=== PATIENT | male | born 1955 | race Caucasian/White ===

== ENCOUNTER → 2022-03-27 09:43 | Outpatient (BNVA) | payer OTHER, SELFPAY | PROVIDERS: Family Provider Internal Medicine; PCP Internal Medicine; Visit Provider Podiatrist Foot & Ankle Surgery | DX: G57.62 Lesion of plantar nerve, left lower limb (principal); E11.9 Type 2 diabetes mellitus without complications; Z79.4 Long term (current) use of insulin; Z79.84 Long term (current) use of oral hypoglycemic drugs | CPT/HCPCS: 64455; 73630; 99204 ==

== ENCOUNTER → 2022-04-30 10:59 | Outpatient (BNVA) | payer OTHER, SELFPAY | PROVIDERS: Family Provider Internal Medicine; PCP Internal Medicine; Visit Provider Podiatrist Foot & Ankle Surgery | DX: G57.62 Lesion of plantar nerve, left lower limb (principal); E11.9 Type 2 diabetes mellitus without complications; Z79.84 Long term (current) use of oral hypoglycemic drugs; Z79.4 Long term (current) use of insulin | CPT/HCPCS: 99213 ==

== ENCOUNTER → 2022-06-29 10:37 | Outpatient (BNVA) | payer OTHER, SELFPAY | PROVIDERS: Family Provider Internal Medicine; PCP Internal Medicine; Referring Provider Nurse Practitioner; Visit Provider Student in an Organized Health Care Education/Training Program | DX: G56.31 Lesion of radial nerve, right upper limb (principal); M65.4 Radial styloid tenosynovitis [de Quervain] | CPT/HCPCS: 20600; 99204 ==

== ENCOUNTER → 2023-03-14 11:28 | Outpatient (BNVA) | payer OTHER, SELFPAY | PROVIDERS: Family Provider Internal Medicine; PCP Internal Medicine; Visit Provider Podiatrist Foot & Ankle Surgery | DX: G57.62 Lesion of plantar nerve, left lower limb; E11.42 Type 2 diabetes mellitus with diabetic polyneuropathy; Z79.84 Long term (current) use of oral hypoglycemic drugs; Z79.4 Long term (current) use of insulin | CPT/HCPCS: 73630; 99213 ==

== ENCOUNTER → 2023-03-28 10:04 | Outpatient (BNVA) | payer OTHER, SELFPAY | PROVIDERS: Family Provider Internal Medicine; PCP Internal Medicine; Referring Provider Nurse Practitioner; Visit Provider Internal Medicine Cardiovascular Disease | DX: I49.9 Cardiac arrhythmia, unspecified (principal); I49.1 Atrial premature depolarization; I49.3 Ventricular premature depolarization | CPT/HCPCS: 93242 ==

== ENCOUNTER 2024-03-18 10:05 | Outpatient (CLI) | payer OTHER, SELFPAY ==
--- NOTE | 2024-03-18 10:08 | USCV_ITS ---
Yoni Grigsby (Jacoby) Age: 68 Gender: M : 1955 Exam Date: 03/18/2024 10:23 Ordering Phys: Shayy Cho Technologist: CHARLEEN Exam Location: [facility] [place] Indication: screening HISTORY: Diameter (cm) AP x Transverse x Length Velocity (cm/s) Waveform Prox Aorta: 2.20 x 2.20 x 78.80 Triphasic Mid Aorta: 2.00 x 1.80 x 74.90 Triphasic Distal Aorta: 2.00 x 1.80 x 61.60 Triphasic Right Iliac Prox: 0.79 x 1.15 x 72.80 Triphasic Left Iliac Prox: 0.99 x 1.16 x 96.40 Triphasic Stent Prox Landing x x Aneurysmal Sac Max x x Lt Lat Sac Dim Rt Lat Sac Dim Stent Dist Landing x x Right Iliac Stent x x Left Iliac Stent x x Right Renal Art Left Renal Art FINDINGS: Comparison: none available. No evidence of abdominal aortic or bilateral iliac aneurysm. Ectatic abdominal aorta with evidence of atherosclerotic plaque noted. CONCLUSIONS No evidence of abdominal aortic or bilateral iliac aneurysm. Dr. Harper Dykes DO (Electronically Signed) Final Date: 18 March 2024 11:11 S
== END 2024-03-18 10:06 | disposition home or self-care (01) ==
LOC: RAD 10:07
PROVIDERS: Family Provider Internal Medicine; PCP Nurse Practitioner; Visit Provider Nurse Practitioner
DX: Z13.6 Encounter for screening for cardiovascular disorders (principal); Z87.891 Personal history of nicotine dependence; Z12.11 Encounter for screening for malignant neoplasm of colon
CPT/HCPCS: 76706; 99203

== ENCOUNTER 2024-03-26 09:56 | Day surgery (SDC) | payer OTHER, SELFPAY ==
--- NOTE | 2024-03-26 10:09 | W.PM.OPSUD ---
Surgery/Procedure H&P Update DATE OF PROCEDURE: March 26, 2024 DATE H&P PERFORMED: 03/18/24 H&P UPDATE INFORMATION: I have reviewed H&P completed within last 30 days, I have examined patient prior to procedure, No changes to prior documentation and H&P is in [facility] EMR on date indicated PLANNED PROCEDURE: Operation Date: 03/26/24 11:40 Proposed Procedures p Colonoscopy 19059, G0121, Z12.11(Not Applicable) - Devon Lewis MD
[2024-03-26 10:10] VITALS: BP 177/74; PULSE 66; RESP 16; TEMP 36.4; O2SAT 98; BMI 24.3
[2024-03-26] MEDS: sodium chloride 0.9% 500 ML 15 ML IV (10:15)
[2024-03-26 10:23] LABS: Glucose Point of Care 96 mg/dL (70-110)
--- NOTE | 2024-03-26 10:31 | ANES.PREANE2 ---
Pre-Anesthetic Assessment Height/Weight: Height 1.91 m Weight 88.451 kg Temp Pulse Resp BP Pulse Ox O2 Del Method 97.6 F 66 16 177/74 98 Room Air 03/26/24 10:10 03/26/24 10:10 03/26/24 10:10 03/26/24 10:10 03/26/24 10:10 03/26/24 10:10 Preop Diagnosis: screening Operation Date: 03/26/24 11:40 Proposed Procedures p Colonoscopy 58294, G0121, Z12.11(Not Applicable) - Devon Lewis MD Familial anesthetic complications: none Was Beta Nneka taken within 24 hours: N/A Was Clonidine taken within 24 hours: N/A Last intake: Intake Last Liquid Date 03/25/24 Last Liquid Time 20:00 Last Solid Date 03/24/24 Last Solid Time 18:00 Social No alcohol and No tobacco Exam alert, oriented x 3 and clear to auscultation bilaterally Airway Mallampati: Class II Dentition: full History/ROS No significant history except as noted Pulmonary None reported CV/HEM Hypertension None reported Hepatic None reported GI None reported Metabolic Diabetes [place] [facility] [place] None reported Neuropsych None reported Anesthetic Plan ASA status: 2 Anesthesia: Anesthesia Evaluation and MAC Risk of > 500 ml blood loss (7ml/kg in children): No Medications/Allergies Home Medications Medication Instructions Recorded Confirmed Last Taken Type finasteride 5 mg tablet 5 mg PO DAILY 03/27/22 03/26/24 03/24/24 History fluticasone propionate 50 2 spray intranasal DAILY 03/27/22 03/26/24 3 Months Ago History mcg/actuation nasal ~12/26/23 spray,suspension (Allergy Relief (fluticasone)) insulin glargine-yfgn 100 unit/mL 20 unit SUBCUT DAILY 03/27/22 03/26/24 03/24/24 History (3 mL) subcutaneous pen lisinopril 40 mg tablet 40 mg PO DAILY 03/27/22 03/26/24 03/24/24 History rosuvastatin 40 mg sprinkle capsule 40 mg PO DAILY 03/27/22 03/26/24 03/24/24 History L3020 WITH METATARSAL PAD #1 ea 03/14/23 03/18/24 Unknown Rx ondansetron 8 mg disintegrating 8 mg PO Q8H PRN nausea and 03/18/24 03/24/24 Unknown Rx tablet vomiting #3 tabs empagliflozin 25 mg tablet 25 mg PO DAILY 03/24/24 03/26/24 03/24/24 History Allergies Allergy/AdvReac Type Severity Reaction Status Date / Time No Known Allergies Allergy Verified 03/26/24 10:17 Current Medications Generic Name Dose Route Start Last Admin Trade Name Freq PRN Reason Stop Dose Admin Sodium Chloride 500 mls @ 15 mls/hr 03/26/24 10:01 03/26/24 10:15 Sodium Chloride 0.9% IV 03/27/24 10:00 15 mls/hr .Q24H PRN Administration COLONOSCOPY FLUIDS PFSH Anesthesia Social History Smoking and tobacco/nicotine status: never used tobacco/nicotine Data Anesthesia Cardiac Studies: Holter Monitor 03/28/23
[2024-03-26 11:31] VITALS: BP 110/67; PULSE 63; RESP 16; TEMP 36.4; O2SAT 97
[2024-03-26 11:36] VITALS: BP 119/88; PULSE 70; RESP 18; O2SAT 96
--- NOTE | 2024-03-26 11:45 | ANE.PACU2 ---
Inpatient post-anesthesia follow up: Airway intact: Yes Vital signs: Temperature 97.5 F Pulse Rate 70 Respiratory Rate 18 Blood Pressure 119/88 Pulse Oximetry 96 Oxygen Delivery Me thod Room Air Oxygen Flow Rate Fraction of Inspir ed Oxygen Hydration adequate: Yes Nausea and vomiting: No Pain level: 1 Mental status: Baseline
[2024-03-26 11:46] VITALS: BP 131/78; PULSE 65; RESP 18; O2SAT 96
== END 2024-03-26 12:15 | disposition home or self-care (01) ==
PROVIDERS: Family Provider Internal Medicine; PCP Nurse Practitioner; Visit Provider Surgery
PROC: 0DJD8ZZ Inspection of Lower Intestinal Tract, Via Natural or Artificial Opening Endoscopic (ICD-10-PCS; CPT 45378; principal; 2024-03-26 11:40)
DX: Z12.11 Encounter for screening for malignant neoplasm of colon (principal); K64.8 Other hemorrhoids; I10 Essential (primary) hypertension; E11.9 Type 2 diabetes mellitus without complications
CPT/HCPCS: 36416; 45378; 82962; J2704; J7040

== ENCOUNTER 2024-04-16 08:02 | Outpatient (CLI) | payer OTHER, SELFPAY ==
[2024-04-16 08:28] LABS: Hematocrit 47.1 % (37-53)
[2024-04-16 08:55] LABS: Alanine Aminotransferase 18 U/L (0-41); Albumin Level 4.4 g/dL (3.5-5.2); Alkaline Phosphatase 76 U/L (40-130); Aspartate Amino Transferase 17 U/L (0-40); Globulin 2.3 g/dL (1.3-4.6); Prostate Specific Antigen Scr 0.28 ng/mL (0-4); Testosterone Total 509.8 ng/dL (193-740); Total Bilirubin 0.8 mg/dL (0.15-1.2); Total Protein 6.7 g/dL (6.6-8.7)
[2024-04-16 09:51] LABS: Estradiol 21.8 pg/mL (7.63-42.6)
== END 2024-04-16 08:03 | disposition home or self-care (01) ==
PROVIDERS: Family Provider Internal Medicine; PCP Nurse Practitioner; Visit Provider Nurse Practitioner
DX: E29.1 Testicular hypofunction (principal); Z12.5 Encounter for screening for malignant neoplasm of prostate
CPT/HCPCS: 36415; 80076; 82670; 84403; 85014; G0103

== ENCOUNTER → 2024-04-29 14:40 | Outpatient (BNVA) | payer OTHER, SELFPAY | PROVIDERS: Family Provider Internal Medicine; PCP Nurse Practitioner; Visit Provider Podiatrist Foot & Ankle Surgery | DX: G57.62 Lesion of plantar nerve, left lower limb (principal); M79.672 Pain in left foot; E11.69 Type 2 diabetes mellitus with other specified complication; Z79.4 Long term (current) use of insulin | CPT/HCPCS: 20550; 64455; J1100; J3301 ==

== ENCOUNTER → 2024-06-10 08:18 | Outpatient (BNVA) | payer OTHER, SELFPAY | PROVIDERS: Family Provider Internal Medicine; PCP Nurse Practitioner; Visit Provider Podiatrist Foot & Ankle Surgery | DX: G57.62 Lesion of plantar nerve, left lower limb (principal); E11.9 Type 2 diabetes mellitus without complications; Z79.4 Long term (current) use of insulin | CPT/HCPCS: 99213 ==

== ENCOUNTER → 2024-07-14 10:31 | Outpatient (BNVA) | payer OTHER, SELFPAY | PROVIDERS: Family Provider Internal Medicine; PCP Nurse Practitioner; Visit Provider Surgery | DX: K64.9 Unspecified hemorrhoids (principal) | CPT/HCPCS: 99213 ==

== ENCOUNTER 2024-09-22 20:00 | Outpatient (CLI) | payer OTHER, SELFPAY | END 2024-09-22 20:01 | disposition home or self-care (01) | LOC: SLEEP 23:29 | PROVIDERS: Family Provider Internal Medicine; PCP Nurse Practitioner; Visit Provider Internal Medicine Pulmonary Disease | DX: G47.39 Other sleep apnea (principal) | CPT/HCPCS: 95810 ==

== ENCOUNTER 2024-11-26 09:22 | Outpatient (CLI) | payer OTHER, SELFPAY | END 2024-11-26 09:23 | disposition home or self-care (01) | PROVIDERS: Family Provider Internal Medicine; PCP Nurse Practitioner; Visit Provider Nurse Practitioner Family | DX: E29.1 Testicular hypofunction (principal) | CPT/HCPCS: 84403 ==

== ENCOUNTER 2024-12-03 11:41 | Outpatient (CLI) | payer OTHER, SELFPAY ==
[2024-12-03 12:21] LABS: Hematocrit 45.0 % (37-53)
[2024-12-03 12:52] LABS: Prostate Specific Antigen 0.202 ng/mL (0-4)
[2024-12-03 13:04] LABS: Hepatitis A Antibody IgM Non-Reactive (Nonreactive); Hepatitis B Surface Antigen Non-Reactive (Nonreactive)
== END 2024-12-03 11:42 | disposition home or self-care (01) ==
PROVIDERS: Family Provider Internal Medicine; PCP Nurse Practitioner; Visit Provider Nurse Practitioner Family
DX: N40.1 Benign prostatic hyperplasia with lower urinary tract symptoms (principal)
CPT/HCPCS: 36415; 82670; 84153; 84403; 85014; 86705; 86706; 86709; 86803; 87340

== ENCOUNTER 2024-12-24 10:58 | Outpatient (CLI) | payer OTHER, SELFPAY ==
--- NOTE | 2024-12-24 11:12 | USCV_ITS ---
Yoni Grigsby (Jacoby) Age: 69 Gender: M : 1955 Exam Date: 12/24/2024 11:25 Ordering Phys: Shayy Cho Technologist: SOURAV [place]am [place] [facility] [place] Indication: vertigo Risk Factors: Previous Vascular Surgery: Right Brachial BP: / Left Brachial BP: / Right Left Velocity (cm/s) Spectral Plaque Velocity (cm/s) Spectral Plaque Syst/Diast Broadening Syst/Diast Broadening 132.00/18.70 Prox CCA 68.30 / 17.70 97.10/ 16.60 Mid CCA 70.10 / 16.90 57.50/ 16.00 Distal CCA 50.10 / 13.80 37.20/ 10.10 Prox ICA 40.30 / 11.90 56.90/ 18.20 Mid ICA 60.00 / 21.80 55.70/ 12.00 Distal ICA 66.40 / 18.40 85.20 ECA 107.50 0.60 ICA/CCA 0.80 Antegrade Vertebral Antegrade 36.50/ 4.30 cm/s 41.40/ 13.10 cm/s Tri Subclavian Tri 55.80 75.00 FINDINGS Comparison: none available. No significant elevation of systolic or diastolic velocities. Waveforms are normal. No significant amount of calcified plaque or intimal thickening identified. CONCLUSIONS Normal carotid doppler ultrasound. Dr. Harper Dykes DO (Electronically Signed) Final Date: 24 December 2024 12:40 S
== END 2024-12-24 10:59 | disposition home or self-care (01) ==
LOC: RAD 10:59
PROVIDERS: PCP Nurse Practitioner; Visit Provider Nurse Practitioner
DX: R42 Dizziness and giddiness (principal)
CPT/HCPCS: 93880

== ENCOUNTER → 2025-03-09 10:10 | Outpatient (BNVA) | payer OTHER, SELFPAY | PROVIDERS: PCP Nurse Practitioner; Visit Provider Podiatrist Foot & Ankle Surgery | DX: G57.62 Lesion of plantar nerve, left lower limb (principal); E11.69 Type 2 diabetes mellitus with other specified complication; Z79.4 Long term (current) use of insulin | CPT/HCPCS: 99214 ==